=== PATIENT | female | born 2000 | race Two or more races ===

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

== ENCOUNTER 2019-07-15 06:53 | Emergency (ER) | payer MEDICAID ==
[~2019-07-15] VITALS: Ht 160 cm; Wt 61.4 kg
[2019-07-15 08:05] VITALS: BP 136/87
== END 2019-07-15 08:52 | disposition home or self-care (01) ==
LOC: ED 07:43
DX: N93.8 Other specified abnormal uterine and vaginal bleeding (principal); O46.91 Antepartum hemorrhage, unspecified, first trimester; Z3A.01 Less than 8 weeks gestation of pregnancy; Z91.010 Allergy to peanuts
CPT/HCPCS: 36415; 76801; 80048; 81001; 82040; 84702; 85025; 86901; 87086; 99284